=== PATIENT | male | born 1995 | race Hispanic/Latino ===

== ENCOUNTER 2017-07-18 19:18 | Emergency (ER) | payer MEDICAID ==
[2017-07-18 23:46] LABS: Basophils % (Auto) 0.6 % (0.0-1.8); Eosinophils # (Auto) 0.2 K/mm3 (0.0-0.4); Eosinophils % (Auto) 1.9 % (0.0-4.3); Hematocrit 40.5 % (35.5-45.6); Hemoglobin 13.1 gm/dl (11.8-15.2); Lymphocytes # (Auto) 2.4 K/mm3 (1.2-5.4); Lymphocytes % (Auto) 28.4 % (13.4-35.0); Mean Corpuscular HGB Conc 32 % (32-34); Mean Corpuscular Hemoglobin 26 pg (28-32); Mean Corpuscular Volume 82 fl (84-94); Monocytes # (Auto) 0.6 K/mm3 (0.0-0.8); Red Blood Count 4.95 M/mm3 (3.65-5.03); Red Cell Distribution Width 13.4 % (13.2-15.2)
[2017-07-19 00:04] LABS: BUN/Creatinine Ratio 11; Blood Urea Nitrogen 9 mg/dL (9-20); Calcium 9.3 mg/dL (8.4-10.2); Hemolysis Index 6
[2017-07-19 00:22] LABS: Platelet Count 182 K/mm3 (140-440)
--- NOTE | 2017-07-19 00:23 | Emergency Department Report ---
HPI - General Chief Complaint: Psych Time Seen by Provider: 07/18/17 22:23 - HPI HPI: 21-year-old [place] male presents to the emergency department by police after he was making threats to stab himself and was starting to break stuff at his mother's house. Despite the fact that the patient says that he has a girlfriend who he spends a lot of time with, and a friend who wants to play video games with him and smoked marijuana with him, he feels that he is alone. He says that his girlfriend left for the day and says that they would see each other on Thursday but as soon as she left he "freaked out." He says that he was at his mother's house and he was crying, throwing stuff and kicking indoors. He also says that he was holding a couple of times and making threats to harm himself. His mother then called the police. He has a history of ADHD and says he is not on any medications for currently but used to be on Concerta. He denies any illicit drugs besides marijuana or excessive alcohol use. He denies any homicidal ideations or any hallucinations. ED Past Medical Hx - Past Medical History Previous Medical History?: Yes Hx Psychiatric Treatment: Yes (ADHD) - Surgical History Past Surgical History?: No - Social History Smoking Status: Current Every Day Smoker Substance Use Type: Alcohol, Marijuana ED Review of Systems ROS: Stated complaint: MENTAL HEALTH Other details as noted in HPI Comment: All other systems reviewed and negative Constitutional: denies: chills, fever Eyes: denies: eye pain, eye discharge, vision change ENT: denies: ear pain, throat pain Respiratory: denies: cough, shortness of breath, wheezing Cardiovascular: denies: chest pain, palpitations Gastrointestinal: denies: abdominal pain, nausea, diarrhea Genitourinary: denies: urgency, dysuria Musculoskeletal: denies: back pain, joint swelling, arthralgia Skin: denies: rash, lesions Neurological: denies: headache, weakness, paresthesias Psychiatric: depression, suicidal thoughts Physical Exam - Physical Exam Vital Signs: Vital Signs 07/18/17 19:27 Temperature 98.4 F Pulse Rate 60 Respiratory 20 Rate Blood Pressure 124/51 O2 Sat by Pulse 100 Oximetry Physical Exam: GENERAL: The patient is well-developed well-nourished. HENT: Normocephalic. Atraumatic. Patient has moist mucous membranes. EYES: Extraocular motions are intact. Pupils equal reactive to light bilaterally. NECK: Supple. Trachea is midline. CHEST/LUNGS: Clear to auscultation. There is no respiratory distress noted. HEART/CARDIOVASCULAR: Regular. There is no tachycardia. There is no murmur. ABDOMEN: Abdomen is soft, nontender. Patient has normal bowel sounds. There is no abdominal distention. SKIN: Skin is warm and dry. NEURO: The patient is awake, alert, and oriented. The patient is cooperative. The patient has no focal neurologic deficits. The patient has normal speech. MUSCULOSKELETAL: There is no tenderness or deformity. There is no limitation range of motion. There is no evidence of acute injury. ED Course Vital Signs 07/18/17 19:27 Temperature 98.4 F Pulse Rate 60 Respiratory 20 Rate Blood Pressure 124/51 O2 Sat by Pulse 100 Oximetry ED Medical Decision Making - Lab Data Result diagrams: 07/18/17 23:22 07/18/17 23:22 - Medical Decision Making The patient presents via police after destroying some of his mother's home and making suicidal threats while holding knives that appears to be all in response to his girlfriend leaving for the day, not even breaking up with him, just spending some time away from him taking care of errands or something. Patient does not appear to understand that his type of behavior is an inappropriate response to wanting to spend time with someone. He also appears to complain of feeling alone despite the fact that he says he has a girlfriend and a close friend who wants to spend time with him as well. His labs are mostly unremarkable. Urine drug screen only positive for marijuana but he admits to smoking some earlier in the day. Vital signs stable. The patient has been made a 1013 secondary to the suicidal ideations/threats. He is medically clear for psychiatric placement. - Differential Diagnosis depression, bipolar disorder, schizophrenia, substance abuse Critical Care Time: No Critical care attestation.: If time is entered above; I have spent that time in minutes in the direct care of this critically ill patient, excluding procedure time. ED Disposition Clinical Impression: Suicidal ideations Depression Qualifiers: Depression Type: unspecified Qualified Code(s): F32.9 - Major depressive disorder, single episode, unspecified Disposition: [id number]/TX-65 PSY HOSP/PSY UNIT Is pt being admited?: No Condition: Stable Referrals: EMI WHITE MD [Primary Care Provider] - 3-5 Days Time of Disposition: 01:39
[2017-07-19 01:05] LABS: Bilirubin,Urine NEG (Negative); Blood,Urine NEG (Negative); Color,Urine Yellow (Yellow); Mucus,Urine 1+ /HPF; Nitrite,Urine NEG (Negative)
[2017-07-19 01:20] LABS: Amphetamine Screen,Urine PRESUMPTIVE NEGATIVE; Benzodiazepines Screen,Urine PRESUMPTIVE NEGATIVE; Cocaine Screen,Urine PRESUMPTIVE NEGATIVE; Methadone Screen,Urine PRESUMPTIVE NEGATIVE; Opiate Screen,Urine PRESUMPTIVE NEGATIVE
[2017-07-19 01:35] LABS: Cannabinoid Screen,Urine PRESUMPTIVE POSITIVE
--- NOTE | 2017-07-19 23:05 | Consultation ---
History of Present Illness - Reason for Consult Consult date: 07/19/17 Reason for consult: psychiatric evaluation - Chief Complaint Chief complaint: "I terrorize my house when I don't get my way." - History of Present Psychiatric Illness 21-year-old [place]rit[place] male presents to the emergency department by police after he was making threats to stab himself and was starting to break stuff at his mother's house. Despite the fact that the patient says that he has a girlfriend who he spends a lot of time with, and a friend who wants to play video games with him and smoked marijuana with him, he feels that he is alone. He expressed the same information during the interview. He wants to be with his girlfreind 19/01. He states he thinks she is cheating when he is not with her. He wants help for anger problems. Although, he is tearful and does not want to stay in the hospital. He has a history of ADHD and says he is not on any medications for currently but used to be on Concerta. He stopped going to the doctor a few month ago, "because I didn't think I needed it anymore." He denies any illicit drugs besides marijua. He reports occasional alcohol use. He denies any homicidal ideations or any hallucinations. Medications and Allergies Allergies Allergy/AdvReac Type Severity Reaction Status Date / Time No Known Allergies Allergy Unverified 07/18/17 19:27 Home Medications Medication Instructions Recorded Confirmed Last Taken Type No Known Home Medications [No 07/19/17 07/19/17 Unknown History Reported Home Medications] Past psychiatric history - Past Medical History Past Medical History: No medical history - past Psychiatric treatment and history psychiatric treatment history: ADHD and previously on concerta He denies a history of suicide attempt He reports scratching his face when he is upset - Social History Social history: lives with family Mental Status Exam - Vital signs Last Vital Signs Temp 98.8 F 07/19/17 10:17 Pulse 55 L 07/19/17 10:17 Resp 17 07/19/17 10:17 BP 110/53 07/19/17 10:17 Pulse Ox 100 07/19/17 10:17 - Exam Narrative exam: glasses held together with tape Orientation: time, place, person Affect: depressed, anxious Mood: anxious Thought content: other (he denies suicidal or homicidal ideation. ) Thought Process: Circumstantial Perceptions: none Speech: normal rate and pattern Concentration: distractible Motor activity: normal Level of consciousness: alert Memory: Intact Sleep Symptoms: None Appetite: decreased Interaction: cooperative Results Result Diagrams: 07/18/17 23:22 07/18/17 23:22 Abnormal lab results 07/18/17 07/18/17 Range/Units 23:22 23:22 MCV 82 L (84-94) fl MCH 26 L (28-32) pg Glucose 148 H (75-100) mg/dL All other labs normal. Assessment and Plan Assessment and plan: Impression: suicidal gesture r/o bipolar disorder cannabis use disorder history of ADHD r/o personality disorder Recommendations: 1013 and transfer to inpatient psychiatric hospital for stabilization. consider atypical antipsychotic, such as risperdal, if he has not been transferred within 24 hours.
[2017-07-20 08:33] VITALS: BP 111/70
--- NOTE | 2017-07-20 10:36 | Progress Note ---
Subjective - Reason for Consult Consult date: 07/20/17 Reason for consult: Psychiatry Follow-up - Chief Complaint Chief complaint: "I okay" 21-year-old German male presents to the emergency department by police after he was making threats to stab himself and was starting to break stuff at his mother's house. Today the patient is calm and cooperative during the assessment. He stated that he didn't really want to hurt himself prior to his admission to the hospital. He stated that he wanted his girlfriend to understand that he want to be with her more throughout the day. He was informed that he being transferred to a mental health facility, he stated, "Maybe I need that." He denies SI/HI's and AVH's. Mental Status Exam - Vital signs Last Vital Signs Temp 99.1 F 07/20/17 08:31 Pulse 99 H 07/20/17 08:31 Resp 18 07/20/17 08:31 BP 111/70 07/20/17 08:31 Pulse Ox 99 07/20/17 08:31 - Exam Narrative exam: MSE: Appearance: calm, cooperative Behavior: fair eye contact Speech: regular rate and low tone Mood: "okay" Affect: congruent to mood Thought Process: circumstantial Thought Content: denies SI/HI's and AVH's Motor Activity: ambulatory Cognition: A/O x 3 Insight: variable Judgment: variable Assessment and Plan Impression: Unspecified Mood DO. Substance Use DO (marijuana). Today the patient is calm and cooperative during the assessment. DDx: R/O Bipolar DO, R/O Personality DO Recommendations: Continue 1013 and transfer to RTC today.
== END 2017-07-20 09:05 ==
LOC: EEVIPCON 19:18 → ED 19:18
DX: F32.9 Major depressive disorder, single episode, unspecified (principal); F17.200 Nicotine dependence, unspecified, uncomplicated; F12.10 Cannabis abuse, uncomplicated
CPT/HCPCS: 36415; 80048; 80307; 81001; 85025; 99285; G0480; 80320